=== PATIENT | female | born 1945 | race Caucasian/White ===

== ENCOUNTER 2019-02-28 12:38 | Emergency (ER) | payer OTHER ==
[~2019-02-28] VITALS: Ht 152.4 cm; Wt 59.9 kg
[2019-02-28] MEDS ORDERED: DESVENLAFAXINE100 M1 PO (13:01)
[2019-02-28] MEDS ORDERED: MICROZIDE12.5 MG PO (13:02)
== END 2019-02-28 16:10 | disposition home or self-care (01) ==
LOC: ER 12:38
DX: B34.9 Viral infection, unspecified (principal)